=== PATIENT | female | born 1945 | race Caucasian/White ===

== ENCOUNTER → 2017-05-06 | Outpatient (CLI) | payer OTHER | LOC: FIMAGING 08:24 | PROVIDERS: ATTEND Family Medicine | DX: Z12.31 Encounter for screening mammogram for malignant neoplasm of breast (principal) | CPT/HCPCS: G0202 ==

== ENCOUNTER → 2017-05-13 | Outpatient (CLI) | payer OTHER | LOC: FIMAGING 15:21 | PROVIDERS: ATTEND Internal Medicine | DX: Z12.39 Encounter for other screening for malignant neoplasm of breast (principal); R92.8 Other abnormal and inconclusive findings on diagnostic imaging of breast ==

== ENCOUNTER → 2017-05-27 | Outpatient (CLI) | payer OTHER ==
[~2017-05-27] MED LIST: BUPIVACAINE 0.5% 10 ML SDV ONE; LIDOCAINE 1% 300 MG/30 ML SDV ONE
== END ==
LOC: FIMAGING 07:19
PROVIDERS: ATTEND Internal Medicine
PROC: 0HBU3ZX Excision of Left Breast, Percutaneous Approach, Diagnostic (ICD-10-PCS; principal; 2017-05-27)
DX: D05.02 Lobular carcinoma in situ of left breast (principal)
CPT/HCPCS: 19083; 88305; 88341; 88342; G0206

== ENCOUNTER → 2017-06-18 | Outpatient (CLI) | payer OTHER | LOC: FIMAGING 07:39 | PROVIDERS: ATTEND Surgery | PROC: 3E0W3HZ Introduction of Radioactive Substance into Lymphatics, Percutaneous Approach (ICD-10-PCS; principal; 2017-06-18) | DX: C50.312 Malignant neoplasm of lower-inner quadrant of left female breast (principal) | CPT/HCPCS: 38792; A9520 ==

== ENCOUNTER → 2017-09-04 | Outpatient (CLI) | payer OTHER | LOC: FIMAGING 12:49 | PROVIDERS: ATTEND Internal Medicine | DX: Z13.820 Encounter for screening for osteoporosis (principal); M85.89 Other specified disorders of bone density and structure, multiple sites; C50.919 Malignant neoplasm of unspecified site of unspecified female breast; Z87.81 Personal history of (healed) traumatic fracture ==

== ENCOUNTER 2017-12-26 15:49 | Inpatient (IN) | payer OTHER ==
[2017-12-26] MEDS ORDERED: NS 1,000 ML IV ONE ×2 (16:19→16:40)
[2017-12-26] MEDS ORDERED: HYDROmorphONE/DILAUDID 2 MG/ML INJ IVP ONE (16:40)
[2017-12-26] MEDS ORDERED: HYDROmorphONE/DILAUDID 1 MG/ML INJ ONE (16:57)
[2017-12-26 17:15] LABS: PLATELET COUNT 406 10^3/uL (150-400)
[2017-12-26] MEDS ORDERED: IOPAMIDOL (ISOVUE-300) 100 ML BTL ONE (17:38)
--- NOTE | 2017-12-26 18:37 | EDPHY ---
H & P Stated Complaint: ABD/ DISTENTION WITH HX BOWEL OBSTRUCTION Time Seen by Provider: 12/26/17 16:24 HPI/ROS: CHIEF COMPLAINT: Abdominal pain HISTORY OF PRESENT ILLNESS:Ms. Arriaza is a 71 year old female with history of SBO in 2016 that required bowel resection. Yesterday she experienced abdominal pain and vomiting, similar to what she experienced with her SBO. She tried bowel rest at home but continued with pain and vomiting, prompting her to visit her PCP today. She was referred to the emergency room for suspected recurrent SBO. Her pain is diffuse, crampy, sometimes severe. She is not currently vomiting but has nausea. No fever. She has not had recent constipation or diarrhea. REVIEW OF SYSTEMS: A ten point review of systems was performed and is negative with the exception of the items mentioned in the HPI. Past medical history: 1. Depression 2. Breast CA Stage 1 3. ADD Past surgical history: 1. Partial mastectomy for Stage 1 breast CA 2. 3. Appendectomy 4. Resection for SBO Social history: She lives independently. No tobacco or ETOH. General Appearance: Alert. Vital signs reviewed. Eyes: Pupils equal and round, no conjunctival injection, no discharge. Anicteric. ENT, Mouth: Mucous membranes are dry, no oropharyngeal erythema or edema. Neck: No lymphadenopathy, supple. Respiratory: Lungs are clear to auscultation; no wheezes, rales, or rhonchi. Cardiovascular: Mildly tachycardic; no murmur, rub, or gallop. Gastrointestinal: Abdomen is soft and nontender, no masses or organomegaly, bowel sounds normal. Skin: Warm and dry, no rashes on exposed skin, normal color. Back: Nontender to palpation over the thoracolumbar spine. No CVAT. Extremities: No lower extremity edema, no calf tenderness or swelling. Neurological: Alert and oriented. Moving all four extremities easily and equally. Psychiatric: Normal affect. - Personal History Current Tetanus Diphtheria and Acellular Pertussis (TDAP): Yes - Medical/Surgical History Hx Asthma: No Hx Chronic Respiratory Disease: No Hx Diabetes: No Hx Cardiac Disease: No Hx Renal Disease: No Hx Cirrhosis: No Hx Alcoholism: No Hx HIV/AIDS: No Hx Splenectomy or Spleen Trauma: No Other PMH: PMH: denies. PSH: , bladder polyps removed, appendectomy. BOWEL OBSTRUCTION/MIGRAINES - Social History Smoking Status: Former smoker Constitutional: Initial Vital Signs Temperature (C) 36.7 C 12/26/17 15:58 Heart Rate 104 H 12/26/17 15:58 Respiratory Rate 20 12/26/17 15:58 Blood Pressure 123/73 H 12/26/17 15:58 O2 Sat (%) 95 12/26/17 15:58 O2 Delivery Mode Room Air Allergies/Adverse Reactions: bee stings Allergy (Uncoded 12/26/17 15:57) wasps Allergy (Uncoded 12/26/17 15:57) Home Medications: Medication Instructions Recorded Anastrozole [Arimidex 1 mg (*)] 1 mg PO DAILY 12/26/17 FLUoxetine [Prozac 20 MG (*)] 40 mg PO DAILY 12/26/17 Herbals/Supplements -Info Only 1 ea PO DAILY 12/26/17 Methylphenidate HCl [Ritalin 5mg 5 mg PO DAILY PRN 12/26/17 (*)] Naproxen Sodium [Aleve 220 MG (*)] 220 mg PO BID PRN 12/26/17 SUMAtriptan [Imitrex 50 MG (*)] 100 mg PO Q2H PRN 12/26/17 Zolpidem Tartrate [Ambien 5MG (*)] 5 - 10 mg PO HS PRN 12/26/17 Medical Decision Making ED Course/Re-evaluation: 71-year-old female with signs and symptoms of small-bowel obstruction. CT scan ordered. She was given 2 L normal saline IV and 0.5 mg Dilaudid IV. The Dilaudid helped significantly with her pain. She was also given Zofran 4 mg IV. She has not vomited while in the emergency department. Her abdomen remains soft, diffusely tender, and mild to moderately distended. She does not have peritoneal signs. CT scan shows small bowel obstruction. She is being admitted to the hospitalist service. I have spoken to Dr. Kevin Villeda who will be the registered nurse surgical services [facility]. Differential Diagnosis: Abdominal pain including but not limited to SBO, appendicitis, cholecystitis, gastritis and urinary tract infection. - Data Points Laboratory Results: Laboratory Results 12/26/17 16:40 12/26/17 16:40 Medications Given: Hydromorphone/Sodium Chloride (Hydromorphone) 0.25 - 0.5 mg IVP Q4 PRN PRN Reason: Pain, Severe Unable to Take PO Stop: 01/05/18 19:35 Last Admin: 12/26/17 22:46 Dose: 0.5 mg Potassium Chloride/Dextrose/Sod Cl (D5w 1/2 Ns W/ 20 Kcl/L) 1,000 mls @ 125 mls /hr IV CONT VITALY Stop: 06/24/18 19:44 Last Admin: 12/27/17 05:15 Dose: 1,000 mls Discontinued Medications Hydromorphone HCl (Dilaudid) 0.5 mg IVP EDNOW ONE Stop: 12/26/17 16:41 Last Admin: 12/26/17 16:59 Dose: 0.5 mg Sodium Chloride (Ns) 1,000 mls @ 0 mls/hr IV ONCE ONE PRN Reason: Wide Open Stop: 12/26/17 16:20 Last Admin: 12/26/17 16:19 Dose: 1,000 mls Sodium Chloride (Ns) 1,000 mls @ 0 mls/hr IV EDNOW ONE; Wide Open PRN Reason: Protocol Stop: 12/26/17 16:41 Last Admin: 12/26/17 16:59 Dose: 1,000 mls Lidocaine (Lidocaine 2% Jelly) 1 leslie TP ONCE ONE Stop: 12/26/17 20:05 Last Admin: 12/26/17 21:13 Dose: 1 leslie Lorazepam (Ativan Injection) 1 mg IVP ONCE ONE Stop: 12/26/17 20:04 Last Admin: 12/26/17 20:54 Dose: 1 mg Point of Care Test Results: Chemistry 12/26/17 17:23 POC Sodium 141 mEq/L mEq/L (135-145) POC Potassium 3.3 mEq/L mEq/L (3.3-5.0) POC Chloride 108 mEq/L mEq/L (97-110) POC BUN 30 mg/dL H mg/dL (7-23) POC Creatinine 0.9 mg/dL mg/dL (0.6-1.0) POC Glucose 113 mg/dL H mg/dL (70-100) ISTAT H&H 12/26/17 17:23 POC Hgb 12.9 gm/dL gm/dL (12.6-16.3) POC Hct 38 % % (38-47) Departure - Departure Disposition: [facility] Inpatient Acute Clinical Impression: Small bowel obstruction Condition: Good
--- NOTE | 2017-12-26 19:28 | PDGENHP ---
History and Physical - Chief Complaint abdominal pain - History of Present Illness 71 y/o female with history of SBO 12/2015 that required bowel resection and JOANN presents with abdominal pain. Pain started Friday and worsened on . The pain is described as sharp and diffuse. She has not had a bowel movement. She has been vomiting since . Last bout of emesis was last night. She tried to treat her symptoms at home by not eating or drinking. History Information - Allergies/Home Medication List Allergies/Adverse Reactions: bee stings Allergy (Uncoded 12/26/17 15:57) wasps Allergy (Uncoded 12/26/17 15:57) Home Medications: Anastrozole [Arimidex 1 mg (*)] 1 mg PO DAILY 12/26/17 [Last Taken 12/24/17] FLUoxetine [Prozac 20 MG (*)] 40 mg PO DAILY 12/26/17 [Last Taken 12/24/17] Herbals/Supplements -Info Only 1 ea PO DAILY 12/26/17 [Last Taken Unknown] Methylphenidate HCl [Ritalin 5mg (*)] 5 mg PO DAILY PRN 12/26/17 [Last Taken ] Naproxen Sodium [Aleve 220 MG (*)] 220 mg PO BID PRN 12/26/17 [Last Taken Unknown] SUMAtriptan [Imitrex 50 MG (*)] 100 mg PO Q2H PRN 12/26/17 [Last Taken Unknown] Zolpidem Tartrate [Ambien 5MG (*)] 5 - 10 mg PO HS PRN 12/26/17 [Last Taken ] I have personally reviewed and updated: family history, medical history, social history, surgical history - Past Medical History Additional medical history: Breast CA treated with lumpectomy, SBO 12/2015 - Surgical History Additional surgical history: Bowel resection and JOANN 2016, [facility], C/S - Social History Smoking Status: Former smoker Alcohol Use: None Drug Use: None Review of Systems Review of Systems: ROS: 10pt was reviewed & negative except for what was stated in HPI & below Physical Exam Physical Exam: Temp Pulse Resp BP Pulse Ox 36.7 C 90 18 144/77 H 95 12/26/17 15:58 12/26/17 17:35 12/26/17 17:35 12/26/17 17:35 12/26/17 17:35 Constitutional: no apparent distress, appears nourished, not in pain Eyes: PERRL, anicteric sclera, EOMI Ears, Nose, Mouth, Throat: moist mucous membranes, hearing normal, ears appear normal, no oral mucosal ulcers Cardiovascular: regular rate and rhythym, no murmur, rub, or gallop, No edema Respiratory: no respiratory distress, no rales or rhonchi, clear to auscultation Gastrointestinal: distension, other (hyperactive bowel sounds), No guarding, No rebound Genitourinary: no bladder fullness, no bladder tenderness Skin: warm, normal color, no rashes or abrasions, no fluctuance, no induration, No mottled Musculoskeletal: full muscle strength, no muscle tenderness, normal joint ROM, no joint effusions Neurologic: AAOx3, CN II-XII Intact, No facial droop Psychiatric: interacting appropriately, not anxious, not encephalopathic, thought process linear Lymph, Heme, Immunologic: no cervical LAD, no supraclavicular LAD Lab Data & Imaging Review 12/26/17 16:40 12/26/17 16:40 WBC 17.04 10^3/uL (3.80-9.50) H 12/26/17 16:40 RBC 4.75 10^6/uL (4.18-5.33) 12/26/17 16:40 Hgb 15.2 g/dL (12.6-16.3) 12/26/17 16:40 POC Hgb 12.9 gm/dL (12.6-16.3) 12/26/17 17:23 Hct 43.4 % (38.0-47.0) 12/26/17 16:40 POC Hct 38 % (38-47) 12/26/17 17:23 MCV 91.4 fL (81.5-99.8) 12/26/17 16:40 MCH 32.0 pg (27.9-34.1) 12/26/17 16:40 MCHC 35.0 g/dL (32.4-36.7) 12/26/17 16:40 RDW 13.4 % (11.5-15.2) 12/26/17 16:40 Plt Count 406 10^3/uL (150-400) H 12/26/17 16:40 MPV 9.1 fL (8.7-11.7) 12/26/17 16:40 Neut % (Auto) 85.5 % (39.3-74.2) H 12/26/17 16:40 Lymph % (Auto) 8.2 % (15.0-45.0) L 12/26/17 16:40 [place] % (Auto) 5.7 % (4.5-13.0) 12/26/17 16:40 Eos % (Auto) 0.1 % (0.6-7.6) L 12/26/17 16:40 Baso % (Auto) 0.2 % (0.3-1.7) L 12/26/17 16:40 Nucleat RBC Rel Count 0.0 % (0.0-0.2) 12/26/17 16:40 Absolute Neuts (auto) 14.58 10^3/uL (1.70-6.50) H 12/26/17 16:40 Absolute Lymphs (auto) 1.39 10^3/uL (1.00-3.00) 12/26/17 16:40 Absolute Monos (auto) 0.97 10^3/uL (0.30-0.80) H 12/26/17 16:40 Absolute Eos (auto) 0.01 10^3/uL (0.03-0.40) L 12/26/17 16:40 Absolute Basos (auto) 0.04 10^3/uL (0.02-0.10) 12/26/17 16:40 Absolute Nucleated RBC 0.00 10^3/uL (0-0.01) 12/26/17 16:40 Immature Gran % 0.3 % (0.0-1.1) 12/26/17 16:40 Immature Gran # 0.05 10^3/uL (0.00-0.10) 12/26/17 16:40 POC Sodium 141 mEq/L (135-145) 12/26/17 17:23 Sodium 137 mEq/L (135-145) 12/26/17 16:40 POC Potassium 3.3 mEq/L (3.3-5.0) 12/26/17 17:23 Potassium 4.3 mEq/L (3.3-5.0) 12/26/17 16:40 POC Chloride 108 mEq/L (97-110) 12/26/17 17:23 Chloride 102 mEq/L (97-110) 12/26/17 16:40 Carbon Dioxide 22 mEq/l (22-31) 12/26/17 16:40 Anion Gap 13 mEq/L (8-16) 12/26/17 16:40 POC BUN 30 mg/dL (7-23) H 12/26/17 17:23 BUN 35 mg/dL (7-23) H 12/26/17 16:40 Creatinine 1.0 mg/dL (0.6-1.0) 12/26/17 16:40 POC Creatinine 0.9 mg/dL (0.6-1.0) 12/26/17 17:23 Estimated GFR 55 12/26/17 16:40 Glucose 133 mg/dL (70-100) H 12/26/17 16:40 POC Glucose 113 mg/dL (70-100) H 12/26/17 17:23 Calcium 9.6 mg/dL (8.5-10.4) 12/26/17 16:40 Urine Color YELLOW 12/26/17 18:15 Urine Appearance CLEAR 12/26/17 18:15 Urine pH 6.0 (5.0-7.5) 12/26/17 18:15 Ur Specific [place] 1.020 (1.002-1.030) 12/26/17 18:15 Urine Protein NEGATIVE (NEGATIVE) 12/26/17 18:15 Urine Ketones NEGATIVE (NEGATIVE) 12/26/17 18:15 Urine Blood NEGATIVE (NEGATIVE) 12/26/17 18:15 Urine Nitrate NEGATIVE (NEGATIVE) 12/26/17 18:15 Urine Bilirubin NEGATIVE (NEGATIVE) 12/26/17 18:15 Urine Urobilinogen NEGATIVE EU (0.2-1.0) 12/26/17 18:15 Ur Leukocyte Esterase NEGATIVE (NEGATIVE) 12/26/17 18:15 Urine Glucose NEGATIVE (NEGATIVE) 12/26/17 18:15 Imaging Review: CT abd reviewed Impression: 1. Findings consistent with small bowel obstruction involving distal jejunum and the ileum. Assessment & Plan Assessment: 71 y/o female with h/o SBO in 2016 presenting with A/ 1. Abdominal pain with CT c/w SBO involving the distal jejunum and ileum 2. Dehydration secondary to above 3. Leukocytosis P/ Admit to inpatient supportive care with IVF and antiemetics will defer NG tube given she is no longer vomiting surgery consult called by Dr. Tucker Full code status
[2017-12-26] MEDS ORDERED: PROMETHAZINE HCL 25 MG/ML INJ IVP PRN (19:36)
[2017-12-26] MEDS ORDERED: HYDROmorphone HCL/NS 0.5 MG/ML SYR IVP PRN (19:36)
[2017-12-26] MEDS ORDERED: ONDANSETRON 4 MG/2 ML VIAL IVP PRN (19:36)
[2017-12-26] MEDS ORDERED: LORazepam 2 MG/ML INJ IVP ONE (20:03)
[2017-12-26] MEDS ORDERED: LIDOCAINE 2% JELLY 5 ML TUBE TP ONE (20:04)
--- NOTE | 2017-12-26 20:11 | PDCONSULT ---
Furs Salesperson Note: Surgical Consult Requested by Angie BYERS and Dr. Napoles CC: abd pain HPI: Rachelle is a pleasant woman who felt well until Friday night when she began having abdominal pain that felt improved after an episode of emesis. She restricted her diet and came in today because the pain was getting worse. She has not had a BM since Friday. PMH: , appendectomy, enterectomy for SBO 2015, partial mastectomy for stage I breast cancer 2016 non-smoker, denies drugs or sig alcohol meds: Arimidex, Imitrex, Fluoxetine, Zolpidem, Ritalin all: bee stings/hornets/wasps SH: lives independently in [place] PE: T 37 P 86 R 18 BP 126/72 Slender woman in mild distress HEENT: no scleral icterus or adenopathy Lungs: clear CVS: RRR Abd: soft/distended, diffusely tender without guarding well healed midline and transverse lower abd incisions without hernia RUQ mole excision scar Pelvis/Rectal: not repeated ext: no pedal edema wbc 17 H/H 15.2/43.4 plat 406K BUN [address] reviewed: dilated loops of small bowel with prior surgical anastomosis in area of transition no free air, no significant free fluid Imp: 1. recurrent SBO, no clinical signs of peritonitis, mild volume deficit 2. Hx breast CA on anastrazole 3. Hx depression 4. Hx ADD Rec: trial of NG decompression may need enterolysis if not clinically improved next 24-48 hours or sooner if clinical symptoms/signs worsen IV fluids Mercy Villeda MD, FACS
--- NOTE | 2017-12-26 20:27 | PDMN ---
Medical Necessity Medical necessity: C/M review: Patient meets INPT criteria under MCG M-210 Intestinal obstruction: Acute small bowel obstruction involving distal jejunum and the ileum (findings consistent with small bowel obstruction seen on CT), abdominal pain, WBC 17.04 requiring General Surgery consult (called by ED MD), ongoing NPO, IV D5 1/2 NS with 20meq KCl 125 ml/hr. infusion, IV antiemetics ( Phenergan, Zofran), and IV Dilaudid as needed, comorbid history of SBO 12/2015 that required bowel resection and lysis of adhesions, breast cancer treated with lumpectomy. MD anticipates > 2 MN LOS for ongoing med nec for eval and TX of above. Patient is Medicare Advantage which follows guidelines CMS puts forth.
[2017-12-26] MEDS: D5W 1/2 NS W/ 20 KCl/L 1,000 ML IV SCH (20:34)
[2017-12-27] MEDS ORDERED: LORazepam 2 MG/ML INJ IVP PRN (01:27)
[2017-12-27 04:39] LABS: PLATELET COUNT 288 10^3/uL (150-400)
[2017-12-27] MEDS: D5W 1/2 NS W/ 20 KCl/L 1,000 ML IV SCH (05:15)
--- NOTE | 2017-12-27 09:00 | SOAPPROG ---
SOAP Progress Note Assessment/Plan: Assessment/Plan: Asked to assume care for pt known to me for breast cancer. Admitted with sbo associated with CT scan evidence of small-bowel obstruction. She had previous laparotomy an antrectomy by Dr. Shruti Pham several years ago. She has had intermittent bouts of what sound like obstruction. NG tube decompression was begun several 100 cc of bilious fluid was aspirated. Overnight the patient began having liquid bowel movements and her pain and discomfort have essentially resolved. Temp Pulse Resp BP Pulse Ox 36.8 C 75 17 95/47 L 93 12/27/17 07:57 12/27/17 07:57 12/27/17 07:57 12/27/17 07:57 12/27/17 07:57 Alert oriented no distress Nasogastric tube in place slightly out with bridal off the nose Abdomen soft nontender nondistended Extremities without edema 12/27/17 04:10 12/27/17 04:10 Total Bilirubin 0.5 mg/dL (0.1-1.4) 12/27/17 04:10 AST 30 IU/L (14-46) 12/27/17 04:10 ALT 30 IU/L (9-52) 12/27/17 04:10 Imaging Impressions Abdomen X-Ray 12/26/17 20:04 Impression: Esophagogastric tube in distal esophagus (tip at esophagogastric junction). Doing very well at this point white blood cell count has come down to 11 from 17K Recommend advancing diet to clear liquids clamping NG tube reassessing and removing tube as appropriate. No current need for surgical intervention. Discussed with patient and nursing staff. 12/27/17 08:55 Objective: Vital Signs Temp Pulse Resp BP Pulse Ox 36.8 C 75 17 95/47 L 93 12/27/17 07:57 12/27/17 07:57 12/27/17 07:57 12/27/17 07:57 12/27/17 07:57 Laboratory Results 12/27/17 04:10 12/27/17 04:10 12/26/17 12/27/17 12/28/17 05:59 05:59 05:59 Intake Total 3000 Output Total 850 600 Balance 2150 -600 ICD10 Worksheet Patient Problems: Problems Problem Status Onset Small bowel obstruction Acute Partial small bowel obstruction Acute
[2017-12-27] MEDS ORDERED: oxyCODONE IR 5 MG TAB PO PRN (10:16)
[2017-12-27] MEDS: ANASTROZOLE 1 MG TAB PO SCH (10:56)
[2017-12-27] MEDS: FLUoxetine 20 MG CAP PO SCH (10:56)
[2017-12-27] MEDS: ENOXAPARIN 40 MG/0.4 ML SYR SC SCH (10:57)
--- NOTE | 2017-12-27 16:00 | HOSPPROG ---
Hospitalist Progress Note Assessment/Plan: * Recurrent SBO due to adhesions -resolving with conservative management -d/w Dr. Garcia - DC NGT and advance diet * h/o breast cancer -Arimidex This is my first visit with Rachelle Subjective: Lots of loose stool Objective: Vital Signs Temp Pulse Resp BP Pulse Ox 37.0 C 79 15 110/58 L 96 12/27/17 11:15 12/27/17 11:15 12/27/17 11:15 12/27/17 11:15 12/27/17 11:15 Laboratory Results 12/27/17 04:10 12/27/17 04:10 12/26/17 12/27/17 12/28/17 05:59 05:59 05:59 Intake Total 3000 Output Total 850 1300 Balance 2150 -1300 d/w Dr. Garcia - advance diet CT abd/pelvis - SBO c/w adhesions - Physical Exam Constitutional: no apparent distress, appears nourished, not in pain Cardiovascular: regular rate and rhythym, no murmur, rub, or gallop Respiratory: no respiratory distress, no rales or rhonchi, clear to auscultation Gastrointestinal: normoactive bowel sounds, soft, non-tender abdomen, no palpable masses Skin: no rashes or abrasions, no fluctuance, no induration Neurologic: AAOx3, sensation intact bilaterally Psychiatric: interacting appropriately, not anxious, not encephalopathic, thought process linear ICD10 Worksheet Patient Problems: Problems Problem Status Onset Small bowel obstruction Acute Partial small bowel obstruction Acute
--- NOTE | 2017-12-27 16:11 | ASMTCMCOM ---
CM Note CM Note Notes: Patient admitted for SBO. She responded well to conservative treatment, so no surgery required. She will advance diet and likely discharge home independent. If any needs arise, Case Management will assist. Date Signed: 12/27/2017 04:10 PM Electronically Signed By:Karena Poon RN
[2017-12-27] MEDS ORDERED: ACETAMINOPHEN 325 MG TAB PO PRN (19:37)
[2017-12-27] MEDS: ZOLPIDEM TARTRATE 5 MG TAB PO PRN (21:37)
[2017-12-28 04:04] LABS: PLATELET COUNT 265 10^3/uL (150-400)
--- NOTE | 2017-12-28 08:00 | SOAPPROG ---
SOAP Progress Note Assessment/Plan: Assessment/Plan: Asked to assume care for pt known to me for breast cancer. Admitted with sbo associated with CT scan evidence of small-bowel obstruction. She had previous laparotomy an antrectomy by Dr. Shruti Pham several years ago. She has had intermittent bouts of what sound like obstruction. NG tube decompression was begun several 100 cc of bilious fluid was aspirated. Overnight the patient began having liquid bowel movements and her pain and discomfort have essentially resolved. Tolerated clears without NGT overnight. Continued normal bowel activity Temp Pulse Resp BP Pulse Ox 36.8 C 75 17 95/47 L 93 12/27/17 07:57 12/27/17 07:57 12/27/17 07:57 12/27/17 07:57 12/27/17 07:57 Alert oriented no distress Nasogastric tube in place slightly out with bridal off the nose Abdomen soft nontender nondistended Extremities without edema 12/27/17 04:10 12/27/17 04:10 Total Bilirubin 0.5 mg/dL (0.1-1.4) 12/27/17 04:10 AST 30 IU/L (14-46) 12/27/17 04:10 ALT 30 IU/L (9-52) 12/27/17 04:10 Imaging Impressions Abdomen X-Ray 12/26/17 20:04 Impression: Esophagogastric tube in distal esophagus (tip at esophagogastric junction). WBC 5K Diet advanced to regular. OK to D/C today with f/u with me prn if tolerates diet 12/28/17 07:58 Objective: Vital Signs Temp Pulse Resp BP Pulse Ox 36.9 C 67 16 106/52 L 94 12/28/17 04:03 12/28/17 04:03 12/28/17 04:03 12/28/17 04:03 12/28/17 04:03 Laboratory Results 12/28/17 03:52 12/28/17 03:52 12/27/17 12/28/17 12/29/17 05:59 05:59 05:59 Intake Total 3000 400 Output Total 850 1800 Balance 2150 -1400 ICD10 Worksheet Patient Problems: Problems Problem Status Onset Small bowel obstruction Acute Partial small bowel obstruction Acute
[2017-12-28] MEDS: FLUoxetine 20 MG CAP PO SCH (09:39)
[2017-12-28] MEDS: ANASTROZOLE 1 MG TAB PO SCH (09:39)
[2017-12-28] MEDS: ENOXAPARIN 40 MG/0.4 ML SYR SC SCH (09:39)
--- NOTE | 2017-12-28 12:04 | HOSPPROG ---
Hospitalist Progress Note Assessment/Plan: The patient is a 72-year-old female with PMH small-bowel resection who was admitted for small-bowel obstruction which has been managed medically. ASSESSMENT/PLAN: SBO, secondary to adhesions History of breast cancer History of small-bowel resection Dehydration, resolved with IVF Anemia - no signs of bleeding, change from admission likely dilutional. Leukocytosis, resolved (reactive to SBO) -patient has improved, but has had some moderate abdominal distention after eating soft foods for breakfast. She still has hypoactive bowel sounds and diffuse abdominal tenderness on exam. Would like to see how she does if we advanced her diet to regular food. Patient felt she was discharged too early last time she had SBO and had to be rehospitalized. -consider to discharge when patient tolerates regular diet -check AM labs. VTE prophylaxis: Lovenox Code Status: Full code Status: Inpatient for greater than 2 midnight stay. Disposition: [facility] with discharge anticipated today or tomorrow, depending on how patient feels This patient is new to me. Reviewed patient's chart/records for this visit. ____ Subjective: Today patient feels a little better but continues to have mild abdominal pain. She is passing gas. She has had 2 liquid BMs. Objective: Vital Signs Temp Pulse Resp BP Pulse Ox 36.9 C 72 16 128/69 H 96 12/28/17 11:58 12/28/17 11:58 12/28/17 11:58 12/28/17 11:58 12/28/17 11:58 Laboratory Results 12/28/17 03:52 12/28/17 03:52 12/27/17 12/28/17 12/29/17 05:59 05:59 05:59 Intake Total 3000 400 Output Total 850 1800 Balance 2150 -1400 OBJECTIVE: Physical Exam: General: The patient is a thin female who is alert and in no acute distress. HEENT: normocephalic, extraocular movements intact, conjunctivae clear. Mucous membranes moist. Neck: trachea midline, no visible masses. Abd: soft and moderately distended. Bowel sounds hypoactive. Diffusely tender throughout. Musculoskeletal: Normal muscle tone/bulk. Neuro: cranial nerves II XII grossly intact. Intact gross motor and sensory function. Psych: Appropriate mood and appropriate affect. Skin: +mild pallor. No petechiae. Heme/lymph: No peripheral edema at bilateral legs. Labs/Imaging/Other Tests: Personally reviewed/interpreted. ICD10 Worksheet Patient Problems: Problems Problem Status Onset Small bowel obstruction Acute Partial small bowel obstruction Acute
[2017-12-28] MEDS: ZOLPIDEM TARTRATE 5 MG TAB PO PRN (20:28)
[2017-12-29 04:11] LABS: PLATELET COUNT 301 10^3/uL (150-400)
--- NOTE | 2017-12-29 08:15 | SOAPPROG ---
SOAP Progress Note Assessment/Plan: Assessment/Plan: Asked to assume care for pt known to me for breast cancer. Admitted with sbo associated with CT scan evidence of small-bowel obstruction. She had previous laparotomy an antrectomy by Dr. Shruti Pham several years ago. She has had intermittent bouts of what sound like obstruction. NG tube decompression was begun several 100 cc of bilious fluid was aspirated. Overnight the patient began having liquid bowel movements and her pain and discomfort have essentially resolved. Tolerated regular Temp Pulse Resp BP Pulse Ox 36.8 C 75 17 95/47 L 93 12/27/17 07:57 12/27/17 07:57 12/27/17 07:57 12/27/17 07:57 12/27/17 07:57 Alert oriented no distress Nasogastric tube in place slightly out with bridal off the nose Abdomen soft nontender nondistended Extremities without edema 12/27/17 04:10 12/27/17 04:10 Total Bilirubin 0.5 mg/dL (0.1-1.4) 12/27/17 04:10 AST 30 IU/L (14-46) 12/27/17 04:10 ALT 30 IU/L (9-52) 12/27/17 04:10 Imaging Impressions Abdomen X-Ray 12/26/17 20:04 Impression: Esophagogastric tube in distal esophagus (tip at esophagogastric junction). WBC 5K Diet advanced to regular. No issues f/u with surgery prn 12/28/17 07:58 12/29/17 08:14 Objective: Vital Signs Temp Pulse Resp BP Pulse Ox 36.6 C 71 16 107/53 L 94 12/29/17 07:32 12/29/17 07:32 12/29/17 07:32 12/29/17 07:32 12/29/17 07:32 Laboratory Results 12/29/17 04:02 12/29/17 04:02 12/28/17 12/29/17 12/30/17 05:59 05:59 05:59 Intake Total 400 800 Output Total 1800 Balance -1400 800 ICD10 Worksheet Patient Problems: Problems Problem Status Onset Small bowel obstruction Acute Partial small bowel obstruction Acute
--- NOTE | 2017-12-29 09:43 | PDDCSUM ---
Discharge Summary Discharge Summary: Dates of service 12/26-12/29/17 Consultations: general surgery Procedures: abd CT Hospital course by problem: The patient is a 72-year-old female with PMH small-bowel resection who was admitted for small-bowel obstruction which has been managed medically. ASSESSMENT/PLAN: SBO, secondary to adhesions: improved with conservative management, tolerating regular diet, bowel sounds returned, passing gas History of breast cancer History of small-bowel resection Dehydration, resolved with IVF Anemia - no signs of bleeding, change from admission likely dilutional. Leukocytosis, resolved (reactive to SBO) VTE prophylaxis: Lovenox Code Status: Full code DC home f/u with PCP > 35 min spent in dc more than half in coordination of care
[2017-12-29] MEDS: ANASTROZOLE 1 MG TAB PO SCH (09:50)
[2017-12-29] MEDS: FLUoxetine 20 MG CAP PO SCH (09:50)
[2017-12-29] MEDS: ENOXAPARIN 40 MG/0.4 ML SYR SC SCH (09:52)
--- NOTE | 2017-12-29 10:01 | ASMTLACE ---
[facility] Length of stay for Answers: 2 days current admission Acuity / Level of Answers: Yes Care: Did the patient have an inpatient admission? Comorbidities - select Answers: Other Notes: Breast cancer all that apply # of Emergency department Answers: 1-2 visits in the last 6 months Social determinants Answers: Mental health diagnosis (anxiety, depression, pers onality disorders, etc.) Score: 10 Date Signed: 12/29/2017 10:00 AM Electronically Signed By:Mami Arreola RN
--- NOTE | 2017-12-29 10:05 | ASMTCMCOM ---
CM Note CM Note Notes: Chart reviewed for discharge planning purposes. No needs identified. Patient has been medically cleared for dc to home. CM available should needs arise Plan: Discharge to home independently with family support. Date Signed: 12/29/2017 10:04 AM Electronically Signed By:Mami Arreola RN
[2017-12-29 11:12] VITALS: BP 106/61
== END 2017-12-29 14:38 | disposition home or self-care (01) | DRG 390 ==
LOC: OBSVTOIN 18:35 → F1N 19:54
PROVIDERS: ADMIT Family Medicine; ATTEND Family Medicine
DX: K56.50 Intestinal adhesions [bands], unspecified as to partial versus complete obstruction (principal); E86.0 Dehydration; D64.9 Anemia, unspecified; Z85.3 Personal history of malignant neoplasm of breast; Z87.891 Personal history of nicotine dependence
CPT/HCPCS: 82435-PO; 82565-PO; 82947-PO; 84132-PO; 84295-PO; 84520-PO; 85014-PO; 96374; J1170; J1650; J2060; Q9967

== ENCOUNTER → 2018-05-08 | Outpatient (CLI) | payer OTHER | LOC: FIMAGING 16:00 | PROVIDERS: ATTEND Internal Medicine | DX: Z12.31 Encounter for screening mammogram for malignant neoplasm of breast (principal); Z80.3 Family history of malignant neoplasm of breast ==

== ENCOUNTER → 2018-09-18 | Outpatient (CLI) | payer OTHER | LOC: FIMAGING 15:04 | PROVIDERS: ATTEND Internal Medicine Hematology & Oncology | DX: N63.24 Unspecified lump in the left breast, lower inner quadrant (principal); Z85.3 Personal history of malignant neoplasm of breast; Z98.890 Other specified postprocedural states ==